=== PATIENT | female | born 1980 | race Caucasian/White ===

== ENCOUNTER 2017-08-07 06:20 | Emergency (ER) | payer MEDICAID ==
--- NOTE | ~2017-08-07 | ER ---
PATIENT'S NAME: TRICIA SULLIVAN [facility] AGE: 36 Y [address] ROOM: [place] [id number] LOCATION: [facility] ADMIT DATE: 08/07/2017 ER/Outpatient Report DISCHARGE DATE: 08/07/2017 FAMILY PHYSICIAN: PHYSICIAN, NO ATTENDING PHYSICIAN: Maeve Gonzalez Time of Arrival: 0600 hours. Time Seen: 0614 hours. IDENTIFICATION: A 36-year-old female. CHIEF COMPLAINT: Bump on forehead. HISTORY OF PRESENT ILLNESS: The patient is a 36-year-old, tearful, anxious female who states that she felt like she had a scratch along the hairline on the upper forehead, kind of midline. Then, she had tenderness there 2 days ago, but now has swelling that is radiating down to the left side of her forehead associated with pain and lymphadenopathy on the left side. No other injuries. No fever or chills. She has had chills, but no fever. She has had nausea, no vomiting. No ill contacts. ALLERGIES: TO SULFA, WHICH CAUSES SWELLING. CURRENT MEDICATIONS: 1. Synthroid 125 mcg daily. 2. Tramadol 50 mg p.r.n. 3. Excedrin PM. MEDICAL PROBLEMS: Hypothyroidism, chronic back and neck pain. PRIOR SURGERIES: Partial hysterectomy in 2005, cholecystectomy, tubal ligation, thyroidectomy, and tonsillectomy. FAMILY HISTORY: Mother with lung cancer. SOCIAL HISTORY: The patient lives in [place]. Her primary care physician is in [place]. Tobacco use, 1 pack per day for 23 years. She is . Alcohol PATIENT'S NAME: TRICIA SULLIVAN [facility] AGE: 36 Y [address] ROOM: [place] [address] LOCATION: [facility] ADMIT DATE: 08/07/2017 ER/Outpatient Report DISCHARGE DATE: 08/07/2017 FAMILY PHYSICIAN: PHYSICIAN, NO ATTENDING PHYSICIAN: Maeve Gonzalez use, denies. Drug use, denies. REVIEW OF SYSTEMS: All systems reviewed and negative other than what is noted in the HPI. PHYSICAL EXAMINATION: GENERAL: A very tearful, anxious 36-year-old female. VITAL SIGNS: Height 5 feet 2 inches, weight 78.4 kg, blood pressure 126/78, pulse 96, respirations 20, temperature 98.5, and saturations 97% on room air. GENERAL: A 36-year-old female. HEENT: Head: Normocephalic. Ears: TMs translucent in both ears. Eyes: Pupils are equal, round, and reactive to light and accommodation. Extraocular movements are intact. Nose: Mucosa pink. No lesions. Mouth: No lesions. Pharynx benign. NECK: Supple with tender lymphadenopathy, left side. She does have an area of erythema in her part line just central scalp with some mild erythema extending down onto her forehead, more to the left-side, that is tender to palpation. No warmth. LABORATORY DATA: Sodium 140, potassium 3.7, chloride 110, CO2 24, BUN 7, creatinine 0.7, and blood sugar 89. Liver enzymes normal. CRP 1.56. Hemoglobin 14, hematocrit 40, platelets 264, white count 13.8, normal differential. Sedimentation rate 19. Amylase and lipase normal. Sedimentation rate 19. Procalcitonin less than 0.05. Urine drug screen negative. Lactate 0.8. UA negative. EMERGENCY ROOM COURSE: The patient was given 30 mg of IM Toradol and [place] 5/325 two tabs with complete resolution of her pain. IMPRESSION: Cellulitis, frontal scalp. PLAN: Rocephin 1 g IM here in the emergency room. Keflex 500 mg t.i.d. for 7 days. Tylenol or ibuprofen for pain. Follow up to recheck in 2-3 days. Follow up sooner if any problems or concerns. The patient understands and agrees. MAEVE GONZALEZ MD CAR/modl PATIENT'S NAME: TRICIA SULLIVAN [facility] AGE: 36 Y [address] ROOM: [place], [place] [address] LOCATION: [facility] ADMIT DATE: 08/07/2017 ER/Outpatient Report DISCHARGE DATE: 08/07/2017 FAMILY PHYSICIAN: PHYSICIAN, NO ATTENDING PHYSICIAN: Maeve Gonzalez /[id number] d: 08/07/17 2307 t: 08/09/17 1500, OUTPATIENT REPORT
[2017-08-07 07:07] LABS: BILIRUBIN URINE NEGATIVE (NEGATIVE); BLOOD URINE NEGATIVE /UL (NEGATIVE); COLOR URINE YELLOW (YELLOW); GLUCOSE URINE NEGATIVE (NEGATIVE); KETONE URINE NEGATIVE (NEGATIVE); LEUKOCYTES URINE NEGATIVE /UL (NEGATIVE); NITRITE URINE NEGATIVE (NEGATIVE); PROTEIN URINE NEGATIVE (NEGATIVE); SPEC GRAVITY URINE 1.005 (1.003-1.035); TURBIDITY URINE CLEAR (CLEAR); UROBILINOGEN URINE NORMAL (NORMAL)
[2017-08-07 07:13] LABS: BASOPHIL # 0.1 K/uL (0.0-0.2); BASOPHIL % 0.5 %; EOSINOPHIL # 0.2 K/uL (0.0-0.5); EOSINOPHIL % 1.7 %; IMMATURE GRANULOCYTE # 0.1 K/uL (0.0-0.3); IMMATURE GRANULOCYTE % 0.5 %; LYMPHOCYTE % 14.5 %; MCH 32.4 pg (27.0-34.0); MCV 92.6 fl (83.0-98.0); MONOCYTE % 7.1 %; MPV 9.6 fl (9.4-12.4); NEUTROPHIL # (ANC) 10.4 K/uL (1.8-7.8); NEUTROPHIL % 75.7 %; NRBC % 0 /100WBC (0-0.00); PLATELET COUNT 264 K/uL (150-450); RBC 4.32 M/uL (3.50-5.50); RDW-CV 11.8 % (11.9-14.6); WBC 13.8 K/uL (4.0-11.0)
[2017-08-07 07:26] LABS: COCAINE NEGATIVE (NEGATIVE); OPIATES NEGATIVE (NEGATIVE)
[2017-08-07 07:35] LABS: AMPHETAMINE NEGATIVE (NEGATIVE); BARBITURATE NEGATIVE (NEGATIVE)
[2017-08-07 07:38] LABS: ALBUMIN 3.4 gm/dL (3.5-5.0); ALK PHOS 68 IU/L (33-138); ALT 14 IU/L (12-78); ANION GAP 9.7 (10.0-19.0); AST 11 IU/L (10-40); BLOOD UREA NITROGEN 7 mg/dL (6-24); CALCIUM 8.4 mg/dL (8.5-10.5); CHLORIDE 110 mMol/L (96-110); CO2 24 mMol/L (22-32); CREATININE 0.7 mg/dL (0.5-1.1); POTASSIUM 3.7 mMol/L (3.7-5.1); SODIUM 140 mMol/L (135-145); TOTAL BILIRUBIN 0.4 mg/dL (0.0-1.5); TOTAL PROTEIN 6.8 g/dL (6.0-8.4)
== END 2017-08-07 09:28 | disposition disaster alternative care site (69) ==
LOC: GMED 06:20
PROVIDERS: Family Medicine
DX: L03.811 Cellulitis of head [any part, except face] (principal); E03.9 Hypothyroidism, unspecified; F17.210 Nicotine dependence, cigarettes, uncomplicated; Z88.2 Allergy status to sulfonamides; Z90.710 Acquired absence of both cervix and uterus; Z98.51 Tubal ligation status; Z90.89 Acquired absence of other organs; Z79.891 Long term (current) use of opiate analgesic; Z79.899 Other long term (current) drug therapy
CPT/HCPCS: J0696; J1885